=== PATIENT | female | born 1985 | race African-American/Black ===

== ENCOUNTER 2022-03-16 12:38 | Emergency (ER) | payer BC ==
[~2022-03-16] VITALS: Ht 170.2 cm; Wt 56.7 kg
--- NOTE | 2022-03-16 12:55 | NUR ---
bibs w/ c/o L calf area pain/discomfort x 1-1/2 day; verbalized concern about possible blood clot, recently switched to iud from control pills. to er bed 7.
--- NOTE | 2022-03-16 15:19 | NUR ---
RECEIVED CALL FROM [place]; SPOKE W/ DR. BEAVERS OVER THE PHONE
[2022-03-16] MEDS ORDERED: APIX5TAB PO (15:59)
--- NOTE | 2022-03-16 16:45 | NUR ---
BLOOD DRAWN AND COLLECTED BY PHLEB TECH
--- NOTE | 2022-03-16 16:50 | NUR ---
URINE SAMPLE COLLECTED AND SENT TO LAB
--- NOTE | 2022-03-16 16:51 | NUR ---
Patient discharged to home in stable condition. Written and verbal after care instructions given. Patient verbalizes understanding of instruction.
--- NOTE | 2022-03-16 16:51 | NUR ---
DR GARCIA MADE AWARE THAT BLOOD SPECIMEN ALREADY COLLECTED. OK FOR PT TO GO HOME WITH RESULT PENDING.
[2022-03-16 16:52] VITALS: BP 113/64
[2022-03-16 17:03] LABS: EOSINOPHILS % (AUTO) 1.2 % (0.0-6.0); HEMATOCRIT 33 % (33-45); LYMPHOCYTES # (AUTO) 2.7 K/uL (0.8-4.8); LYMPHOCYTES % (AUTO) 53.5 % (20.0-44.0); MEAN CORPUSCULAR HGB CONC 31 g/dl (31.0-36.0); MEAN CORPUSCULAR VOLUME 83 fL (82-100); MONOCYTES # (AUTO) 0.4 K/uL (0.1-1.30); MONOCYTES % (AUTO) 7.5 % (2.0-12.0); NEUTROPHILS # (AUTO) 1.8 K/uL (1.8-8.9); NEUTROPHILS % (AUTO) 36.8 % (43.0-81.0); PLATELET COUNT (AUTO) 266 K/uL (150-450); RED BLOOD CELL COUNT(AUTO) 3.91 MIL/uL (4.0-5.2)
[2022-03-16 17:39] LABS: CALCIUM, SERUM 9.1 mg/dL (8.5-10.1); POTASSIUM 3.5 mmol/L (3.5-5.1)
[2022-03-16 17:40] LABS: BILIRUBIN,TOTAL 0.5 mg/dL (0.2-1.0); CREATININE 0.6 mg/dL (0.6-1.3)
[2022-03-16 17:41] LABS: ALBUMIN 3.8 g/dL (3.4-5.0); TOTAL PROTEIN, SERUM 7.6 g/dL (6.4-8.2)
== END 2022-03-16 16:52 | disposition home or self-care (01) ==
LOC: ER 12:38
DX: I82.812 Embolism and thrombosis of superficial veins of left lower extremity (principal); M79.662 Pain in left lower leg; Z79.01 Long term (current) use of anticoagulants
CPT/HCPCS: 36415; 80053-TC; 84703-TC; 85025-TC; 85730-TC; 93971-TC